=== PATIENT | male | born 1995 | race Caucasian/White ===

== ENCOUNTER → 2022-11-25 12:45 | Outpatient (BNVA) | payer OTHER, SELFPAY | PROVIDERS: PCP Internal Medicine; Visit Provider Student in an Organized Health Care Education/Training Program | DX: M54.12 Radiculopathy, cervical region (principal) | CPT/HCPCS: 99202 ==

== ENCOUNTER → 2022-12-28 14:45 | Outpatient (BNVA) | payer OTHER, SELFPAY | PROVIDERS: Visit Provider Internal Medicine | DX: M47.812 Spondylosis without myelopathy or radiculopathy, cervical region (principal) | CPT/HCPCS: 99202 ==

== ENCOUNTER 2023-06-16 10:56 | Day surgery (SDC) | payer OTHER, SELFPAY ==
--- NOTE | ~2023-06-16 | FL_ITS ---
EXAMINATION: XR FLUOROSCOPY WITH IMAGES CLINICAL INFORMATION: SPRINT. COMPARISON: None available. TECHNIQUE: Fluoroscopy Supervised By: Dr. Jas Herrera. Fluoroscopy Time: 0.2 minutes. Cumulative Dose: 0.849 mGy. DAP: 0.0845 Gycm2. Images: 2. FINDINGS: Images demonstrate needle/probe placement adjacent to left anterior lateral cervical spine. FL/FL guidance in OR IMPRESSION: Fluoroscopy guidance for pain management procedure
[2023-06-16 11:09] VITALS: BP 120/63; PULSE 54; RESP 18; TEMP 36.8; O2SAT 97; BMI 20.7
[2023-06-16] MEDS: LORazepam 1 MG TABLET PO (11:23)
--- NOTE | 2023-06-16 13:03 | PM.OP ---
Brief Operative Note Date of Service: 06/16/23 Pre-op diagnosis: Cervical facet syndrome, intractable neck pain Post-op diagnosis: same Procedure: Temporary left C4 medial branch nerve stimulator placement Implants: Sprint temporary PNS system Surgeon: Jas Herrera MD Anesthesia: local Was an Freezer Laboratory Technician used for this Procedure?: No Estimated blood loss (mL): 1 Pathology: none sent Condition: stable Disposition: same day
--- NOTE | 2023-06-16 13:04 | W.PM.OPN ---
Operative Note Operative Note Date of Service: 06/16/23 Narrative: Cervical Medial Branch Nerve Stimulation Lead Placement, SPR (Sprint) System, Left C4 ? After the risks, benefits and alternatives were discussed with the patient and informed consent was obtained, patient was placed in the prone position and padded to foster comfort. The skin overlying the cervical spine was prepped and draped in sterile fashion. Fluoroscopy was used to identify the spinous process and lamina over the C4 articular pillar. After identifying and marking the intended target along the course of the medial branch nerve, the skin around the planned entry point and the subcutaneous tissues were injected with lidocaine 1%. An introducer needle and stimulating probe were assembled, inserted and advanced along the intended course of the medial branch nerve, taking care to maintain the proper depth of insertion as the introducer was advanced under fluoroscopic guidance. The introducer needle was delivered to a location in proximity to the nerve. Multiple stimulation parameters were used to deliver stimulation to the target medial branch nerve in concert with stimulating at multiple positions around the nerve. Nerve target acquisition was confirmed noting generation of paresthesias in the paravertebral regions corresponding to the level being stimulated. Various electrical parameter combinations were tested, and the lead location was adjusted (physically relocated) until the patient indicated paresthesia/muscle tension overlapping the distribution of the patient?s typical region of pain, including neck and occipital region. The stimulating probe was removed from the introducer and a percutaneous lead was guided through the needle and delivered to a location in similar proximity to the nerve. Final location was verified with electrical stimulation and documented with fluoroscopy. The introducer needle was removed, and the exposed end of the percutaneous lead was attached to an external stimulator unit. Various electrical parameter combinations were again tested until the patient indicated paresthesia or muscle tension overlapping the distribution of the patient?s typical region of pain. Fluoroscopy was used to document the location of the percutaneous lead in the deployed position. After confirming that lead impedance was in the normal range, the external unit was detached, the needle was removed, and the lead was anchored at the skin. The lead was threaded into the connector block and electrical continuity and desired patient response was confirmed. The connector block was attached to the external stimulator unit. The site was covered with a sterile occlusive pressure dressing. The patient was observed for stability of vital signs and comfort. Patient was dischared in stable condition.
[2023-06-16 13:08] VITALS: BP 114/63; PULSE 49; RESP 16; TEMP 36.8; O2SAT 98
== END 2023-06-16 13:42 | disposition home or self-care (01) ==
PROVIDERS: PCP Internal Medicine; Visit Provider Internal Medicine
PROC: (CPT 64555; principal; 2023-06-16 11:40)
DX: M47.812 Spondylosis without myelopathy or radiculopathy, cervical region (principal); M54.2 Cervicalgia; M25.512 Pain in left shoulder; G43.909 Migraine, unspecified, not intractable, without status migrainosus; G93.0 Cerebral cysts; Z79.899 Other long term (current) drug therapy; Z79.1 Long term (current) use of non-steroidal anti-inflammatories (NSAID)
CPT/HCPCS: 64555; C1778

== ENCOUNTER → 2023-06-16 10:56 | Outpatient (BNV) | payer OTHER, SELFPAY | PROVIDERS: PCP Internal Medicine; Visit Provider Internal Medicine | DX: M47.812 Spondylosis without myelopathy or radiculopathy, cervical region (principal) | CPT/HCPCS: 64555 ==

== ENCOUNTER → 2023-06-21 12:01 | Outpatient (BNVA) | payer OTHER, SELFPAY | PROVIDERS: PCP Internal Medicine; Visit Provider Internal Medicine ==

== ENCOUNTER → 2023-09-17 14:07 | Outpatient (BNVA) | payer OTHER, SELFPAY | PROVIDERS: PCP Internal Medicine; Visit Provider Internal Medicine | DX: Z51.89 Encounter for other specified aftercare (principal); M47.812 Spondylosis without myelopathy or radiculopathy, cervical region; M54.2 Cervicalgia | CPT/HCPCS: 99212 ==

== ENCOUNTER 2023-09-17 14:08 | Outpatient (AMB) | payer OTHER, SELFPAY ==
[2023-09-17 14:23] VITALS: BP 122/78; PULSE 72; O2SAT 99; BMI 21.1
--- NOTE | 2023-09-17 14:23 | A.OFFVIS_ITS ---
Intake Vital Signs 09/17/23 14:23 Height 5 ft 9 in Weight 143 lb BMI 21.1 BP 122/78 Blood Pressure Location Rt brachial Position Sitting Pulse 72 Pulse Source Pulse Oximeter Pulse Oximetry (%) 99 Oxygen Delivery Method Room Air Intake Visit Reasons: Sprint removal Intake Note: Pain today 06/06 Newspaper Peddler Required: No Accompanied by: Spouse Allergies No Known Allergies Allergy (Verified 09/17/23 14:23) HPI HPI Comments History of Present Illness Details Patient presents for Sprint removal. He had left C4 medial branch S print lead placement on 06/16/[address] Herrera. Patient was scheduled for initial Sprint removal for 08/27/23 for which he was unable to attend and was rescheduled for 09/10/23 but was out of town. Patient reports he is temporary residing with his family in [place] at this time. Patient presents today for Sprint removal. He reports significant bilateral neck pain and stiffness. Patient reports less than 10% pain relief with PNS trial. The dressing was removed today. Lead insertion site looks intact but with moderate redness, mild swelling and tenderness, and yellow discharge was noted on dressing. No foul odor, no pathological discharge from lead insertion site noted. Area was cleansed with Chloraprep. Lead pulled with tip intact and the area was cleansed again with Chloraprep, applied Bacitracin and covered it with gauze and Tegaderm film dressing. Denies any recent cough, cold, infection, fever or other significant changes in medical history since last office visit. Past Procedures: 06/16/23: Left C4 medial branch Sprint-1 0% pain relief PRIOR Dr. Herrera 12/28/22: 27-year-old male presenting today for ne ck and shoulder pain, left worse than right. Patient pain started after he dove headfirst into the shallow end of the pool and hit his head into the floor of the pool. He had significant soreness in his neck and shoulder after that incident for the 1st couple of weeks, which then diminished but never went away. Since then, he has had neck pain and stiffness and has difficulty rotating his neck and moving it back and forth. He describes the pain as throbbing and constant throughout the day in his neck, especially on than left side. He was evaluated by automated process operator and had a steroid injections without relief. He has undergone physical therapy at [facility], also without relief. Instead, the physical therapy made his pain much worse and he was unable to continue it beyond 3 weeks. He has had to leave his job due to pain. The patient has a longstanding history of migraine and is currently on Imitrex. He underwent an MRI scan at [facility]. He was using gabapentin, ibuprofen and meloxicam for pain but then started experiencing some right flank pain for which he discontinued these medications. At present he is taking occasional NSAIDs to help with his severe symptoms. [facility] Medical History Migraines Kidney stones Acne Brain cyst Social History Household Members: Spouse and Children Alcohol intake: never e-Cigarette/Vaping Use: Currently Using Review of Systems Const All systems reviewed & are unremarkable except as noted in HPI and below Reports as per HPI, Denies body aches, Denies chills, Reports difficulty sleeping, Reports fatigue, Denies fever(s), Denies frequent falls, Reports headache(s), Denies malaise, Denies night sweats, Denies weakness and Denies weight loss ENT Reports headache(s) and Reports neck pain Card Denies chest pain, Denies irregular heart rhythm, Denies lightheadedness and Denies dyspnea Resp Denies chest congestion, Denies cough and Denies dyspnea Musc Denies myalgias, Reports neck pain, Denies numbness, Denies radiating pain into limb, Reports stiffness and Denies tingling Neuro Denies frequent falls, Reports headache(s), Denies numbness, Denies tingling and Denies weakness Endo Reports fatigue Physical Exam Vital Signs: Last Vital Signs Pulse 72 09/17/23 14:23 BP 122/78 09/17/23 14:23 Pulse Ox 99 09/17/23 14:23 Oxygen Delivery Method Room Air 09/17/23 14:23 BMI result Body Mass Index 21.1 General: Appears afebrile. Alert and oriented. Mood and affect appropriate. Follows and participates in conversation appropriately. Respiratory effort is unlabored. Able to transition from sit to stand unassisted. Ambulates with bilaterally normal heel strike and toe off. Lead Insertion Site: Lead insertion site looks intact but with moderate redness, mild swelling and tenderness, and yellow discharge noted on dressing. No foul odor, no pathological discharge from lead site. Area was cleansed with Chloraprep. Lead pulled with tip intact. The area was cleansed again with Chloraprep, applied Bacitracin and covered it with gauze and Tegaderm film dressing. Neck Neck: Yes normal visual inspection, Yes full ROM, Yes no lymphadenopathy, Yes supple, No anterior neck swelling and Yes no JVD Back/Spine/Pelvis Cervical Spine: cervical ROM normal, cervical muscular tenderness, pain with cervical ROM, cervical spasm and No Cervical spine tenderness Results Reviewed Results Reviewed: 07/22/2021: MRI of the cervical spine without intravenous contrast. Examination was performed on 1.5 Lindsey magnet without administration of intravenous contrast. No previous studies are available for comparison. Cerebellar tonsils are normally positioned. Vertebral bodies are maintained in height. C2-3 level is unremarkable. At C3-4 level there is mild bulging of the disc and mild hypertrophy of the uncovertebral joints. There is slight narrowing of the lateral recesses and C3 neural foramina. There is no obvious nerve root compression. At C4-5 level there is mild hypertrophy of the right uncovertebral joint. There is slight narrowing of the right lateral recess and the right C5 neural foramen. No focal disc herniation or spinal cord compression. At C5-6 level there is broad-based central and to the left protrusion of the disc. There is no evidence of spinal cord or nerve root compression. At C6-7 level there is no significant abnormalities. At C7-T1 level there is no significant abnormalities. There is no focal signal abnormalities within the spinal cord. Perivertebral soft tissues are unremarkable. CONCLUSIONS: Broad-based central and to the left protrusion of the C5-6 disc. Hypertrophic changes in the right uncovertebral joint at C4-5 level there is mild narrowing of the right C5 neural foramen. Slight narrowing of the C3 neural foramina due to hypertrophy of the uncovertebral joints. No focal signal abnormalities within the spinal cord. Please see details in the report. Assessment & Plan Assessment & Plan (1) Cervical facet syndrome: Code(s): M47.812 - Spondylosis without myelopathy or radiculopathy, cervical region (2) Visit for wound check: Code(s): Z51.89 - Encounter for other specified aftercare (3) Myofascial neck pain: Code(s): M54.2 - Cervicalgia Plan Patient is status post left C4 Sprint removal. He presents with lead insertion site with concerns for mild erythema and yellow discharge. Patient denies any fever, malaise, body aches, cough or infection. Script sent for Cephalexin for 5 days, side effects and precautions discussed with patient. Apply Bacitracin to site once daily covered by bandaid, extra supplies provided to patient today. Patient requests neck injection to alleviate his acute on chronic symptoms. Continue Tylenol, NSAIDs, ice/heat therapy, gently stretching. All questions and concerns have been answered and patient agreed with the plan. Patient is aware to seek medical evaluation in ER, Urgent Clinic or call our office if worsening symptoms. Follow up in 1 week for wound check/injection discussion and sooner as needed. Medications: New cephalexin 500 mg PO Q12H 5 days 10 caps 0RF M47.812 - Spondylosis without myelopathy or radiculopathy, cervical region Coding Level of Care Code Est Pt Level 4 (58712) Diagnoses Cervical facet syndrome M47.812 Visit for wound check Z51.89 Myofascial neck pain M54.2
== END 2023-09-17 14:27 | disposition home or self-care (01) ==
PROVIDERS: PCP Internal Medicine; Visit Provider Nurse Practitioner Family
DX: M47.812 Spondylosis without myelopathy or radiculopathy, cervical region (principal); Z51.89 Encounter for other specified aftercare; M54.2 Cervicalgia
CPT/HCPCS: 99214